=== PATIENT | female | born 1955 | race Caucasian/White ===

== ENCOUNTER 2017-01-22 15:46 | Emergency (ER) | payer OTHER ==
[~2017-01-22] VITALS: Ht 154.9 cm; Wt 78.5 kg
[~2017-01-22 15:46] MED LIST: DIAZ-90 PO; IBUP200C11 PO; NAPR-260 PO; OMEP20CA16 PO; [UNRECOGNIZED DRUG - OTHER] PO
[2017-01-22 15:51] VITALS: Ht 154.9 cm; Wt 78.5 kg
[2017-01-22] MEDS ORDERED: AZIT250T94 PO (16:39)
[2017-01-22] MEDS ORDERED: ALBU18HF INHALATION (16:39)
[2017-01-22] MEDS ORDERED: D-ME473S2 PO (16:39)
--- NOTE | 2017-01-22 16:53 | ERD ---
ER Documentation Chief Complaint Chief Complaint COUGH.ST, EAR PAIN X 1 WEEK HPI Patient is a 61-year-old female presenting to the emergency department with complaints of intermittent cough, sore throat, and right ear pain for 1 week. The patient's symptoms are worsening. Symptoms are worsening. She has taken Tylenol at home with no relief. She denies other symptoms at this time. ROS All systems reviewed and are negative except as per history of present illness. Medications Home Meds Active Scripts Meclizine Hcl* (Antivert*) 12.5 Mg Tab, 12.5 MG PO Q6H Y for DIZZINESS, #20 TAB Prov:CHET RODRIGUEZ PA-C 01/22/17 Dextromethorphan Hb-Promethazine Hcl* (Promethazine DM* Syrup) 473 Ml Syrup, 5 ML PO Q6 Y for COUGH, #120 ML Prov:CHET RODRIGUEZ PA-C 01/22/17 Albuterol Sulfate* (Ventolin HFA*) 18 Gm Hfa.aer.ad, 2 PUFF INHALATION Q4H, #1 INHALER Prov:CHET RODRIGUEZ PA-C 01/22/17 Azithromycin* (Zithromax*) 250 Mg Tablet, 250 MG PO .ZPACK DIRECTED, #6 TAB TAKE 500 MG (2 TABS) THE FIRST DAY THEN 250 MG (1 TAB) DAYS 2-5 Prov:CHET RODRIGUEZ PA-C 01/22/17 Diazepam* (Valium*) 5 Mg Tablet, 5 MG PO Q8, #15 TAB Prov:ENA AVALOS PA-C 03/01/16 Naproxen* (Naprosyn*) 500 Mg Tablet, 500 MG PO BID Y for PAIN AND/OR INFLAMMATION, #30 TAB Prov:ENA AVALOS PA-C 03/01/16 Reported Medications [Muscle Relief] No Conflict Check, PO DAILY 09/26/13 Ibuprofen* (Advil*) 200 Mg Capsule, 800 MG PO DAILY Y for PAIN, CAP 09/26/13 Omeprazole* (Omeprazole*) 20 Mg Capsule.dr, 20 MG PO AM, CAP 09/26/13 Allergies Allergies: Coded Allergies: Penicillins (Verified Allergy, Mild, 09/26/13) PMhx/Soc History of Surgery: Yes (APPENDECTOMY 1992) Anesthesia Reaction: No Hx Respiratory Disorders: No Hx Cardiac Disorders: No Hx Psychiatric Problems: No Hx Miscellaneous Medical Probl: Yes (HIGH CHOLESTEROL PREVIOUSLY) Hx Alcohol Use: No Hx Substance Use: No Hx Tobacco Use: No Smoking Status: Never smoker Physical Exam Vitals Vital Signs Date Time Temp Pulse Resp B/P Pulse Ox O2 Delivery O2 Flow Rate FiO2 01/22/17 15:51 98.1 71 18 138/78 99 Physical Exam Const: Nontoxic, well-appearing female in no acute distress. Head: Atraumatic Eyes: Normal Conjunctiva ENT: Normal External Ears, Nose and Mouth. The right tympanic membrane is erythematous. Left tympanic membrane is normal in appearance. Neck: Full range of motion..~ No meningismus. Resp: Shallow inspiratory effort. Mild inspiratory rhonchi noted to bilateral upper lung fontanez. No crackles noted. No signs of respiratory distress. No retractions. Cardio: Regular rate and rhythm, no murmurs Skin: No petechiae or rashes Back: No midline or flank tenderness Ext: No cyanosis, or edema Neur: Awake and alert Psych: Normal Mood and Affect Result Diagram: 01/22/17 1715 01/22/17 1715 Results 24 hrs Laboratory Tests Test 01/22/17 17:15 White Blood Count 4.910^3/ul Red Blood Count 4.6010^6/ul Hemoglobin 14.4g/dl Hematocrit 42.8% Mean Corpuscular Volume 93.0fl Mean Corpuscular Hemoglobin 31.3pg Mean Corpuscular Hemoglobin Concent 33.6g/dl Red Cell Distribution Width 12.2% Platelet Count 44982^3/UL Mean Platelet Volume 10.1fl Neutrophils % 49.9% Lymphocytes % 30.6% Monocytes % 4.9% Eosinophils % 13.6% Basophils % 0.8% Nucleated Red Blood Cells % 0.0/100WBC Neutrophils # 2.410^3/ul Lymphocytes # 1.510^3/ul Monocytes # 0.210^3/ul Eosinophils # 0.710^3/ul Basophils # 0.010^3/ul Nucleated Red Blood Cells # 0.010^3/ul Sodium Level 144mmol/L Potassium Level 4.2mmol/L Chloride Level 108mmol/L Carbon Dioxide Level 28mmol/L Anion Gap 12 Blood Urea Nitrogen 13mg/dl Creatinine 0.85mg/dl Glucose Level 107mg/dl Calcium Level 9.8mg/dl Total Bilirubin 0.6mg/dl Direct Bilirubin 0.00mg/dl Indirect Bilirubin 0.6mg/dl Aspartate Amino Transf (AST/SGOT) 29IU/L Alanine Aminotransferase (ALT/SGPT) 49IU/L Alkaline Phosphatase 111IU/L Troponin I < 0.012ng/ml Total Protein 8.0g/dl Albumin 4.4g/dl Globulin 3.60g/dl Albumin/Globulin Ratio 1.22 Current Medications Medications (Trade) Dose Ordered Sig/Oziel Route PRN Reason Start Time Stop Time Status Last Admin Dose Admin Sodium Chloride (NS) 1,000 ml @ 1,000 mls/hr Q1H STAT IV 01/22/17 17:00 01/22/17 17:59 DC 01/22/17 17:22 Meclizine HCl (Antivert) 12.5 mg ONCE ONCE PO 01/22/17 17:00 01/22/17 17:04 DC 01/22/17 17:22 Procedures/MDM 61-year-old female presents to the emergency department with complaints of right ear pain, cough, worse at night. History and physical examination is consistent with otitis media and bronchitis. Low suspicion for pneumonia, pneumothorax, vomiting embolism, or other emergent conditions. The patient is stable for outpatient management with prescriptions to control her symptoms. She was in agreement. Strict ER return precautions discussed. Follow-up with the primary care physician was advised. EKG: Reviewed by ED physician. Rate/Rhythm: Normal sinus rhythm with a rate of 60 bpm. QRS, ST, T-waves: No changes consistent w/ acute ischemia Impression: No evidence of ischemia or arrhythmia Departure Diagnosis: Primary Impression: Otitis media Otitis media type: unspecified Chronicity: acute Qualified Code: H66.90 - Acute otitis media, unspecified otitis media type Additional Impression: Bronchitis Condition: Fair Patient Instructions: Bronchitis, Antiobiotic Treatment (Adult), Otitis Media, Abx Tx (Adult) Additional Instructions: No mas mejor en 2-3 rascon, regresar. Mas peor en 24 horas, regresear rapidamente. Ir a doctor primario en 1-2 rascon. Usar instrucciones cuando stiven medicamento. CHET RODRIGUEZ PA-C Jan 22, 2017 16:53
[2017-01-22] MEDS ORDERED: MECLIZINE 12.5 MG TAB PO ONE (17:00)
[2017-01-22] MEDS ORDERED: SOD CHLORIDE 0.9% 1,000 ML IV STA (17:00)
[2017-01-22 17:26] LABS: BASOPHILS % 0.8 % (0.0-2.0); EOSINOPHILS # 0.7 10^3/ul (0.0-0.5); EOSINOPHILS % 13.6 % (0.0-7.0); HEMATOCRIT 42.8 % (37.0-47.0); HEMOGLOBIN 14.4 g/dl (12.0-16.0); LYMPHOCYTES # 1.5 10^3/ul (0.8-2.9); LYMPHOCYTES % 30.6 % (15.0-51.0); MEAN CORPUSCULAR HEMOGLOBIN 31.3 pg (29.0-33.0); MEAN CORPUSCULAR HGB CONC 33.6 g/dl (32.0-37.0); MEAN PLATELET VOLUME 10.1 fl (7.4-10.4); MONOCYTE # 0.2 10^3/ul (0.3-0.9); MONOCYTES % 4.9 % (0.0-11.0); NEUTROPHIL # 2.4 10^3/ul (1.6-7.5); NEUTROPHILS % 49.9 % (39.0-77.0); PLATELET COUNT 272 10^3/UL (140-415); RED CELL DISTRIBUTION WIDTH 12.2 % (11.5-14.5); WHITE BLOOD COUNT 4.9 10^3/ul (4.8-10.8)
[2017-01-22 17:45] LABS: ALANINE AMINOTRANSFERASE 49 IU/L (13-69); ALBUMIN 4.4 g/dl (3.3-4.9); ALBUMIN/GLOBULIN RATIO 1.22; ALKALINE PHOSPHATASE 111 IU/L (42-121); ANION GAP 12 (8-16); ASPARTATE AMINO TRANSFERASE 29 IU/L (15-46); BILIRUBIN,INDIRECT 0.6 mg/dl (0-1.1); BILIRUBIN,TOTAL 0.6 mg/dl (0.2-1.3); BLOOD UREA NITROGEN 13 mg/dl (7-20); CALCIUM 9.8 mg/dl (8.4-10.2); CARBON DIOXIDE 28 mmol/L (21-31); CHLORIDE 108 mmol/L (97-110); CREATININE 0.85 mg/dl (0.44-1.00); GLUCOSE 107 mg/dl (70-220); POTASSIUM 4.2 mmol/L (3.5-5.1); SODIUM 144 mmol/L (135-144)
--- NOTE | 2017-01-22 17:53 | RADRPT ---
PROCEDURE: Chest x-ray CLINICAL INDICATION: Cough TECHNIQUE: Chest single view COMPARISON: 08/22/2007 FINDINGS: The heart is normal in size. The pulmonary vessels are normal in caliber. The lungs are clear. Th e costophrenic angles are sharp. The visualized bony thorax is unremarkable. IMPRESSION: No acute cardiopulmonary disease. RPTAT: HH .Nikolai Shaikh MD, Date Time Electronically viewed and signed by .Nikolai Shaikh MD, MD on 01/22/2017 17:53 .W/
[2017-01-22 17:57] LABS: TROPONIN-I < 0.012 ng/ml (0.00-0.12)
--- NOTE | 2017-01-22 18:06 | RADRPT ---
PROCEDURE: CT Brain without contrast. CLINICAL INDICATION: dizziness TECHNIQUE: A CT of the brain was performed on a multi-slice CT scanner utilizing axial imaging fro m the skull base through the vertex without IV contrast. Multiplanar reformatted images were made. Images were reviewed on a PACS workstation. The CTDIvol is 44.63 mGy and the DLP is 720.23 mGycm. One or more of the following dose reduction techniques were used: Automated exposure control. Adjustment of the mA and/or kV according to patient's size. Use of iterative reconstruction technique. COMPARISON: None FINDINGS: The sulcal gyral pattern is unremarkable without evidence of effacement. The erickson-white matter diff erentiation is intact. No masses, edema or shift is identified. There are no intraparenchymal or extraaxial fluid collecti ons. The visualized paranasal sinuses and mastoid air cells are well-aerated. The skull base and calvari um are intact. IMPRESSION: No acute intracranial abnormalities are identified. RPTAT:AAJJ Physician [facility] Date Time Electronically viewed and signed by Physician Bay on 01/22/2017 18:06 AUDREY/
--- NOTE | 2017-01-22 18:07 | RADRPT ---
PROCEDURE: XR left shoulder. CLINICAL INDICATION: L shoulder pain after fall TECHNIQUE: AP, Internal and external rotation views of the shoulder were performed. COMPARISON: None. FINDINGS: There is normal osseous mineralization and alignment. No acute fracture or osseous lesion is identified. There are normal joints without evidence of arthritis or dislocation. The soft tissues are unremarkable. IMPRESSION: No definite abnormalities are identified. RPTAT:AAJJ Physician [place] Date Time Electronically viewed and signed by James Katz Physician on 01/22/2017 18:07 AUDREY/
[2017-01-22] MEDS ORDERED: MECL12.574 PO (18:26)
== END 2017-01-22 18:34 | disposition home or self-care (01) ==
LOC: FTE 15:46
DX: H66.91 Otitis media, unspecified, right ear (principal); J20.9 Acute bronchitis, unspecified; R42 Dizziness and giddiness
CPT/HCPCS: 36415; 70450; 71010; 73030; 80053; 84484; 85025; 93005; J7030; Z7502; Z7610

== ENCOUNTER → 2017-10-12 | Emergency (ER) | END | disposition home or self-care (01) ==

== ENCOUNTER 2018-12-08 15:19 | Emergency (ER) | payer OTHER ==
[~2018-12-08] VITALS: Ht 154.9 cm; Wt 100.0 kg
[~2018-12-08 15:19] MED LIST changes: +ACET-141 PO; +ALBU18HF INHALATION; +AZIT250T PO; +D-ME473S2 PO; -DIAZ-90 PO; +DIAZ5TAB PO; +DOCU-144 PO; +IBUP-1542 PO; +MECL12.574 PO; -NAPR-260 PO; +NAPR-985 PO; +NITR-58 PO; +ONDA4TAB14 PO
[2018-12-08 15:31] VITALS: Ht 154.9 cm; Wt 100.0 kg
[2018-12-08] MEDS ORDERED: SOD CHLORIDE 0.9% 1,000 ML IV STA (15:52)
[2018-12-08] MEDS ORDERED: ONDANSETRON 4 MG INJ IV STA (15:52)
[2018-12-08] MEDS ORDERED: KETOROLAC 30 MG INJ IV STA (15:52)
[2018-12-08 17:36] VITALS: BP 110/68; PULSE 55; RESP 16
== END 2018-12-08 18:39 | disposition home or self-care (01) ==
LOC: E/R 15:19
DX: N30.90 Cystitis, unspecified without hematuria (principal); K59.00 Constipation, unspecified
CPT/HCPCS: 36415; 74176; 80053; 81001; 83690; 85025; 96374; 96375; J1885; J2405; J7030; Z7502